=== PATIENT | female | born 1995 | race Caucasian/White ===

== ENCOUNTER → 2023-11-08 | Outpatient (CLI) | payer OTHER | LOC: LAB 08:20 → LAB SHORT 08:20 | PROVIDERS: Family Medicine | DX: Z01.419 Encounter for gynecological examination (general) (routine) without abnormal findings (principal) | CPT/HCPCS: G0123 ==

== ENCOUNTER → 2024-11-28 | Outpatient (CLI) | payer OTHER | END | disposition home or self-care (01) | LOC: LAB SHORT 11:26 → LAB 11:26 | DX: O09.90 Supervision of high risk pregnancy, unspecified, unspecified trimester (principal) | CPT/HCPCS: 87081; 87150 ==

== ENCOUNTER 2024-12-16 09:03 | Inpatient (IN) | payer OTHER ==
[2024-12-16] VITALS (16 sets, daily range): BP systolic 110–142; BP diastolic 66–88
[~2024-12-16] VITALS: Ht 157.5 cm; Wt 58.6 kg
[2024-12-16] MEDS ORDERED: Methylergonovine Maleate 0.2MG / ML 1ML Amp IM PRN ×2 (09:45→13:50)
[2024-12-16] MEDS ORDERED: Acetaminophen 500 MG Tab PO PRN ×2 (09:45→13:45)
[2024-12-16] MEDS ORDERED: OXYTOCIN/RINGER'S LACTATE 500 ML IV PRN (09:45)
[2024-12-16] MEDS ORDERED: Misoprostol 200 MCG Tab PR PRN ×2 (09:45→13:55)
[2024-12-16] MEDS ORDERED: Oxytocin 10 Unit / ML Vial IM PRN (09:45)
[2024-12-16] MEDS ORDERED: Misoprostol 200 MCG Tab BC PRN (09:45)
[2024-12-16] MEDS ORDERED: Tranexamic Acid 100 ML IV SCH (09:45)
[2024-12-16] MEDS ORDERED: FentaNYL Citrate 50 MCG/ML 2 ML Injection IV PRN (09:45)
[2024-12-16] MEDS ORDERED: Carboprost Tromethamine 250 MCG/ML 1ML Amp IM PRN ×2 (09:45→13:45)
[2024-12-16] MEDS ORDERED: Lactated Ringer's 1,000 ML IV PRN (09:45)
[2024-12-16] MEDS ORDERED: Ondansetron HCl 2 MG / ML 2ML Vial IV PRN (09:45)
[2024-12-16] MEDS ORDERED: FentaNYL 2mcg/ml-Bup 0.1% Epd 250 ML EPI PRN (09:50)
[2024-12-16] MEDS ORDERED: Lactated Ringer's 1,000 ML IV SCH ×3 (09:50→13:50)
[2024-12-16] MEDS ORDERED: Calcium Carbonate 500 MG Tab Chew PO PRN (09:50)
[2024-12-16] MEDS ORDERED: ePHEDrine Sulfate 50 MG/ML 1ML Injection XX PRN (09:50)
[2024-12-16] MEDS ORDERED: LEVSOD100 PO (10:05)
[2024-12-16] MEDS ORDERED: PRENATAL TABLE1 EAC2 PO (10:05)
[2024-12-16 10:33] LABS: BASOPHILS ABSOLUTE AUTO 0.08 K/mm3 (0.00-0.23); BASOPHILS PERCENT AUTO 1 % (0-2); EOSINOPHILS ABSOLUTE AUTO 0.09 K/mm3 (0.00-0.68); EOSINOPHILS PERCENT AUTO 1 % (0-6); Hematocrit 37.8 % (33.0-51.0); IMMATURE GRAN ABSOLUTE AUTO 0.08 K/mm3 (0.00-0.10); IMMATURE GRAN PERCENT AUTO 1 % (0-1); LYMPHOCYTES ABSOLUTE AUTO 2.08 K/mm3 (0.84-5.20); LYMPHOCYTES PERCENT AUTO 15 % (21-46); MONOCYTES ABSOLUTE AUTO 0.64 K/mm3 (0.16-1.47); MONOCYTES PERCENT AUTO 5 % (4-13); Mean Corpuscular HGB 32.4 pg (26.0-34.0); Mean Corpuscular HGB Conc 34.4 g/dL (31.5-36.5); Mean Corpuscular Volume 94 fL (80-100); NEUTROPHILS ABSOLUTE AUTO 11.09 K/mm3 (1.96-9.15); NEUTROPHILS PERCENT AUTO 79 % (41-73); RDW Coefficient Variation 13.1 % (11.7-14.2); RDW Standard Deviation 45.1 fL (35.1-46.3); Red Blood Cell Count 4.01 M/mm3 (3.80-5.20); White Blood Cell Count 14.06 K/mm3 (4.00-11.30)
[2024-12-16 11:37] LABS: Mean Platelet Volume 11.8 fL (9.1-12.4); Platelet Count 191 K/mm3 (150-400)
[2024-12-16] MEDS ORDERED: OXYTOCIN/RINGER'S LACTATE 500 ML IV SCH (13:45)
[2024-12-16] MEDS ORDERED: Benzocaine Topical Anesthetic Spray 60GM TOP PRN (13:45)
[2024-12-16] MEDS ORDERED: Ketorolac Tromethamine 30mg Vial IV PRN (13:50)
[2024-12-16] MEDS ORDERED: FLU VACC TS2024-25(6MOS UP)/PF 45 MCG/0.5 ML SYRINGE IM SCH (13:50)
[2024-12-16] MEDS ORDERED: Docusate Sodium 100 MG Cap PO PRN (13:50)
[2024-12-16] MEDS ORDERED: Ibuprofen 400 MG Tab PO PRN (13:50)
[2024-12-16] MEDS ORDERED: Witch Hazel/Glycerin PADS TOP PRN (13:50)
[2024-12-16] MEDS ORDERED: Lanolin Cream TOP PRN (13:55)
--- NOTE | 2024-12-17 04:35 | NUR ---
NB TO NURSERY TO PLACE NG TUBE PER PED'S ORDER FOR FEEDING. NG TUBE PLACED AT 20CM AT [facility]. NB TOLERATED WELL. GASTRIC CONTENTS ASPIRATED WITH 10CC SYRINGE. DR CHAVEZ VERIFIED PLACEMENT VIA XRAY. NB OKAY TO BE IN ROOM WHILE CONT FEED IS GOING. NB TO BE PLACED IN UPRIGHT POSITION IN CRIB TO AVOID ASPIRATION.
[2024-12-17 04:48] VITALS: BP 111/72
--- NOTE | 2024-12-17 05:24 | NUR ---
PT AND FOB EDUCATED ON NG TUBE PLACEMENT AND PURPOSE FOR CONTINUOUS FEEDING. PT AND FOB VERBALIZED UNDERSTANDING OF EDUCATION AND WILL ASK QUESTIONS IF THEY COME UP. RN INSTRUCTED PT TO CALL IF SHE SEES NB IN DISTRESS, PULLING OUT NG TUBE, ETC. CALL LIGHT WITHIN REACH.
[2024-12-17] MEDS ORDERED: Levothyroxine Sodium 0.1 MG Tab PO SCH (06:00)
[2024-12-17 07:26] VITALS: BP 120/70
[2024-12-17] MEDS ORDERED: Prenatal Vit/FE Fumarate/FA 1 Tab PO SCH (09:00)
[2024-12-17] MEDS ORDERED: IBUP800 PO (11:00)
[2024-12-17 11:23] VITALS: BP 111/64
[2024-12-17 16:45] VITALS: BP 123/81
== END 2024-12-17 17:30 | disposition home or self-care (01) | DRG 806 ==
LOC: OBS 09:03 → BC 09:03 → OBS 09:26 → BC 09:27
PROVIDERS: ADMIT Obstetrics & Gynecology
PROC: 10E0XZZ Delivery of Products of Conception, External Approach (ICD-10-PCS; principal; 2024-12-16)
PROC: 10907ZC Drainage of Amniotic Fluid, Therapeutic from Products of Conception, Via Natural or Artificial Opening (ICD-10-PCS; 2024-12-16)
PROC: 4A1HXCZ Monitoring of Products of Conception, Cardiac Rate, External Approach (ICD-10-PCS; 2024-12-16)
DX: O99.284 Endocrine, nutritional and metabolic diseases complicating childbirth (principal); Q87.89 Other specified congenital malformation syndromes, not elsewhere classified; Z37.0 Single live birth; E06.3 Autoimmune thyroiditis; Z3A.39 39 weeks gestation of pregnancy; O99.892 Other specified diseases and conditions complicating childbirth; O77.0 Labor and delivery complicated by meconium in amniotic fluid
CPT/HCPCS: 36415; 85025; 86850; 86900; 86901; A9270; J1885; J2590